=== PATIENT | female | born 1970 | race Caucasian/White ===

== ENCOUNTER 2016-10-15 17:04 | Emergency (ER) | payer BC ==
[~2016-10-15] VITALS: Ht 157.5 cm; Wt 74.5 kg
[2016-10-15 17:08] VITALS: Ht 157.5 cm; Wt 74.5 kg
[2016-10-15] MEDS ORDERED: ERYTOPOI LEFT EYE (17:13)
[2016-10-15] MEDS ORDERED: FEXO180T61 PO (17:15)
[2016-10-15] MEDS ORDERED: NAPH15DR22 LEFT EYE (17:16)
--- NOTE | 2016-10-15 17:25 | ERD ---
ER Documentation Chief Complaint Date/Time DATE: 10/15/16 TIME: 17:21 Chief Complaint left eye possible sty HPI This is a 46-year-old female presents to the ER with a bump to her left upper eyelid. Patient notices 3 days ago. Bump is red and is very itchy. Patient denies any discharge from the eye. She denies any eye pain or vision loss. Patient denies any trauma or possibility of foreign bodies in the eye. She denies seeing any halos, floaters, flashes of light. She denies any fevers or chills. Patient denies any nausea vomiting or photophobia. He denies any headaches. ROS 12 point review of systems was done, all negative except per HPI. Medications Home Meds Active Scripts Naphazoline-Pheniramine* (Visine-A*) 15 Ml Drops, 2 DROP LEFT EYE Q4H Y for RED EYES for 3 Days, EA Prov:KHANG MCKINLEY 10/15/16 Fexofenadine Hcl* (Meghan*) 180 Mg Tablet, 180 MG PO DAILY, #30 TAB Prov:KHANG MCKINLEY 10/15/16 Erythromycin* (Erythromycin* Ophthalmic) 1 Applic Oint, 1 APPLIC LEFT EYE QID for 7 Days, EA Prov:KHANG MCKINLEY 10/15/16 Physical Exam Vitals Vital Signs Date Time Temp Pulse Resp B/P Pulse Ox O2 Delivery O2 Flow Rate FiO2 10/15/16 17:08 98.1 94 20 123/71 99 Physical Exam GENERAL: The patient is well developed and appropriate for usual state of health , in no apparent distress. HEENT: Atraumatic. There is a diet to the patient's left upper eyelid. There is no conjunctival injection or discharge. No evidence of hyphema or hypopyon. Schadler movements are intact with no pain. There is no TM injection. No TM bulging. No tonsillar erythema or exudate. CHEST: Clear to auscultation bilaterally. There are no rales, wheezes or rhonchi. HEART: Regular rate and rhythm. No murmurs, clicks, rubs or gallops. NEURO: Alert and oriented. Procedures/MDM This is a 46-year-old female presents to the ER with a bump to her left upper eyelid. At this time is likely a stye. Suspicion for bacterial conjunctivitis, corneal ulcer, retinal detachment, acute angle-closure glaucoma is low. Patient does not have any discharge from the eyes she has denied any vision loss or eye pain. Patient will be sent home with erythromycin and with Meghan. She needs follow-up with her primary care doctor within 1-2 days or return to ER sooner symptoms worsen. My medical decision making was shared with the patient she understands and agrees with plan. Departure Diagnosis: Primary Impression: Stye Condition: Stable Patient Instructions: When Your Child Has a Stye Additional Instructions: Llame al doctor RASHAWN y solitario oscar KAIN PARA DENTRO DE 1-2 SANCHEZ.Dgale a la secretaria que nosotros le instruimos hacer esta kain.Avise o llame si knox condicin se empeora antes de la kain. Regresa aqui si peor o no mejor. KHANG MCKINLEY Oct 15, 2016 17:25
== END 2016-10-15 17:18 | disposition home or self-care (01) ==
LOC: FTE 17:04 → E/R 17:18
DX: H00.014 Hordeolum externum left upper eyelid (principal)
CPT/HCPCS: 99283